=== PATIENT | male | born 1955 | race Caucasian/White ===

== ENCOUNTER 2020-01-18 07:01 | Outpatient (CLI) | payer OTHER, MEDICARE ==
[~2020-01-18] VITALS: Ht 175.3 cm; Wt 92.1 kg
[2020-01-18] VITALS (10 sets, daily range): BP systolic 118–142; BP diastolic 69–84
[2020-01-18] MEDS ORDERED: CYAN10002 IM (08:25)
[2020-01-18] MEDS ORDERED: ERGO2000 PO (08:25)
[2020-01-18] MEDS ORDERED: LIPA1CAP8 PO (08:33)
[2020-01-18] MEDS ORDERED: MULT-471 PO (08:33)
[2020-01-18] MEDS ORDERED: ZINC220T3 PO (08:33)
[2020-01-18] MEDS ORDERED: VITA400C6 PO (08:33)
[2020-01-18] MEDS ORDERED: LISI10TA2 PO (08:33)
[2020-01-18 08:38] LABS: BASO % 1 % (0-3); EOS # 0.2 x10^3/uL (0.0-0.7); EOS % 4 % (0-3); HEMATOCRIT 34.6 % (39.0-53.0); LYMPH % 23 % (24-48); MEAN CORPUSCULAR HEMOGLOBIN 37 pg (25-35); MEAN CORPUSCULAR HGB CONC 35 g/dL (31-37); MEAN CORPUSCULAR VOLUME 106 fL (79-100); MONO # 0.4 x10^3/uL (0.0-1.1); MONO % 10 % (0-9); NEUT # 2.7 x10^3/uL (1.8-7.7); NEUT % 63 % (31-73); PLATELET COUNT 195 x10^3/uL (140-400); RED BLOOD COUNT 3.26 x10^6/uL (4.30-5.70); WHITE BLOOD COUNT 4.3 x10^3/uL (4.0-11.0)
[2020-01-18] MEDS ORDERED: LIDOCAINE WITH 8.4% SOD BICARB 3 ML DISP.SYRIN. ONE (09:02)
[2020-01-18] MEDS ORDERED: fentaNYL PF VIAL 100 MCG/2 ML VIAL ONE (09:13)
[2020-01-18] MEDS ORDERED: MIDAZOLAM HCL/PF 2 MG/2 ML VIAL. ONE (09:13)
[2020-01-18] MEDS ORDERED: MIDAZOLAM HCL/PF 2 MG/2 ML VIAL. IV ONE (09:30)
[2020-01-18] MEDS ORDERED: fentaNYL PF VIAL 100 MCG/2 ML VIAL IV ONE (09:30)
[2020-01-18] MEDS ORDERED: LIDOCAINE WITH 8.4% SOD BICARB 3 ML DISP.SYRIN. IJ ONE (09:30)
--- NOTE | 2020-01-26 12:13 | RAD ---
CT-guided bone marrow biopsy. 01/26/2020 10:09 AM Indication: myelodysplastic syndrome Discussion: The risks and benefits of the procedure, including but not limited to, bleeding and infection were discussed patient. Informed consent was obtained. The patient was brought to the CT scanner and placed in the prone position. A timeout procedure was performed. Delivery Clerk CT imaging of the pelvis demonstrated left ilium amenable to bone marrow biopsy. The overlying soft tissues were prepped and draped using maximum sterile barrier technique. 1% lidocaine without epinephrine was administered for local anesthesia. Under intermittent CT guidance, an OncControl needle was advanced into the bone marrow of the left iliac crest. 2 Aspirates and 1 core biopsy samples were obtained. Samples were delivered to pathology was present at the time of procedure. The needle was removed and manual pressure held to achieve hemostasis. No immediate complications were identified. The procedure was performed under conscious sedation including continuous cardiopulmonary monitoring via dedicated sedation nurse. Sedation time: 20 minutes Impression: Successful CT-guided bone marrow biopsy of the left iliac crest . PQRS Compliance Statement: One or more of the following individualized dose reduction techniques were utilized for this examination: 1. Automated exposure control 2. Adjustment of the mA and/or kV according to patient size 3. Use of iterative reconstruction technique
--- NOTE | 2020-01-28 22:06 | PATHOLOGY ---
[facility] Accession Number: [id number] . 01 Material submitted: . PART A: bone - BONE MARROW BIOPSY PART B: bone - BONE MARROW CLOT PART C: bone - BONE MARROW ASPIRATE SLIDES PART D: bone - PERIPHERAL BLOOD SMEARS PART E: bone - BONE MARROW FLOW . 01 Clinical history: . The patient is a 64-year-old male with a clinical history significant for hypertension, vitamin B12 deficiency and weight loss. He was also noted to have macrocytic anemia. A bone marrow biopsy is performed. . 02 Diagnosis: Bone marrow aspirate, biopsy, cell clot and peripheral blood: - Peripheral blood with mild macrocytic normochromic anemia, monocytosis and lymphocytopenia. - Moderately hypercellular bone marrow with minimal dyspoiesis; negative for marrow infiltrative process. Please see comment. LB 01/25/2020 1708 Local . 02 Comment: Overall, the bone marrow biopsy shows active hematopoiesis with minimal dyspoiesis. Rare nuclear budding involving the erythroid lineage and rare hypolobated megakaryocytes are noted. The myelodysplastic changes do not meet the criteria for myelodysplastic syndrome. However, the possibility of an evolving myelodysplastic syndrome should also be considered. Other non-clonal causes of myelodysplastic changes should also be considered. The presence of monocytosis may also suggest the possibility of a chronic myelproliferative/myelodysplastic neoplasm such as seen in chronic myelomonocytic leukemia. Correlation with clinical findings such as presence of persistent monocytosis for at least three months when all other non-reactive causes of monocytosis have been excluded. Correlation with cytogenetic studies is recommended. (JMQ/db; 01/25/20) . 02 Electronically signed: . Ale Loya MD, Pathologist NPI- [id number] . 01 Gross description: . A. The specimen is received in formalin, labeled "Melvin Sewell, bone marrow biopsy". Received is a single needle core of light christensen bone measuring 1.4 cm in length by 0.3 cm in diameter. The specimen is submitted entirely in cassette A1, following light decalcification. . B. The specimen is received in formalin, labeled "Melvin Sewell". No source is listed on the container. The source is listed on the requisition as, "BM aspirate clot". Received is blood coagulum measuring 1.6 x 1.5 x 0.2 cm in aggregate dimensions. The specimen is filtered and entirely submitted in cassette B1. (CAA; 01/18/2020) QAC/QAC 01/18/2020 1654 Local . 02 Microscopic: . Bone Marrow Procedure Note: The bone marrow biopsy is performed at [facility]. Specimens are submitted for morphology, flow cytometry and cytogenetic studies. . CBC Data (01/18/20): WBC 4.3, RBC 3.26, hemoglobin 12.0, hematocrit 34.6, MCV 106, RDW 16.0%, platelet count 195,000. White blood cell count differential: 63% segs, 23% lymphs, 10% monos, 4% eos and 1% basophil. . Peripheral Blood: Red blood cells are normochromic with mild anisopoikilocytosis including occasional microcytic and macrocytic forms and elliptocytes without schistocytes or morphologic evidence of a hemolytic process identified. Platelets are normal in number and morphology. White blood cells are normal in number with predominance of mature segmented neutrophils. There is relative lymphopenia and monocytosis noted. The lymphocytes are mostly small and mature with a few atypical reactive lymphocytes and large granular lymphocytes. . Bone Marrow Aspirate: Marrow spicules are adequate, hypercellular, and polymorphous. Megakaryocytes are present with rare hypolobated forms. Erythroid precursors show rare nuclear budding. Granulocytic precursors show full spectrum maturation. There is no increase in blasts identified. 500 cell count: 1% blasts, 2% promyelocytes, 16% meta- and myelocytes, 46% segs and bands, 30% erythroid precursors, 2% lymphocytes, 1% monocytes, and 2% plasma cells. The M:E ratio is 2 as to 1. . Iron stain: Markedly decreased to absent marrow iron stores without ringed sideroblasts. . Bone Marrow Biopsy and Cell Clot: The bone marrow core biopsy averages 50-60% in cellularity. Megakaryocytes average 3-12/HPF. A few hypolobated megakaryocytic forms are noted. Abundant erythroid and granulocytic precursors are present without clusters or blasts, atypical lymphoid aggregates, or other marrow infiltrative process. The cell clot shows occasional clusters of hematopoietic elements and is similar to core biopsy morphologically. . Iron stain (A1 and B1) - Negative Reticulin stain (A1) - Absent reticulin fibrosis (MF0) . Flow Cytometry: Immunophenotypic studies by flow cytometry reveal no diagnostic abnormalities detected. No immunophenotypic evidence of a lymphoproliferative disorder, acute leukemia, increased blasts or plasma cell neoplasm is identified (please see separate flow cytometry report from [employer] [id number]). (JMQ/db; 01/25/20) . 02 Pathologist provided ICD-10: D53.9, D72.821, D72.810 . 02 CPT . 920866, 243164, 955231, 673643, 141465, 298336, 431336, 054374, [id number] Specimen Comment: A courtesy copy of this report has been sent to [phone], [phone]- Specimen Comment: [id number], Specimen Comment: Report sent to ,DR YEN / DR WAGNER Performed at: 01 [facility] [address] [id number] MD Eulalio Rain MD Phone: [phone] Performed at: 02 [facility] [id number] [place] [id number] MD Ale Loya MD Phone: [phone]
== END 2020-01-18 10:50 | disposition home or self-care (01) ==
LOC: INTRAD 07:01
PROVIDERS: ATTEND Internal Medicine Hematology & Oncology
DX: D72.810 Lymphocytopenia (principal); D53.9 Nutritional anemia, unspecified
CPT/HCPCS: 36415; 38222; 77012; 85025; 85610; 88184; 88185; 88237; 99152; J2250; J3010; J3490